=== PATIENT | male | born 1955 | race Caucasian/White ===

== ENCOUNTER 2018-02-10 16:38 | Emergency (ER) | payer OTHER ==
[~2018-02-10] VITALS: Ht 175.3 cm; Wt 61.0 kg
[~2018-02-10 16:38] MED LIST: ASCORBIC ACID500 M3 PO; ASPIR 8181 M1 PO; ASPIRIN81 M2 PO; BENADRYL25 MG PO; COREG25 M1 PO; COUMADIN1 MG PO; ENDOCET 5-3251 EACH PO; FLAGYL500 MG PO; FOLIC ACID1 MG PO; LASIX20 MG PO; LEVAQUIN500 MG PO; LIDOCAINE700 MG TD; LISINOPRIL20 MG PO; METOCLOPRAMIDE10 MG PO; OXYCONTIN10 MG PO; PERCOCET 5/31 TABLET PO; SENNA-TIME S T1 EACH PO; THERAGRAN1 TABLET PO
[2018-02-10 17:45] LABS: HEMATOCRIT 47.1 % (38.0-50.0); HEMOGLOBIN 16.2 G/DL (12.5-16.6); MCH 35.5 PG (29.0-34.0); MCHC 34.4 G/DL (30.0-36.0); MCV 103.3 FL (86-99); PLATELET COUNT 227 K/uL (156-360); RBC DIS.WIDTH-CV 14.5 % (11.8-14.6); RBC DIS.WIDTH-SD 55.4 % (39-53); RED BLOOD COUNT 4.56 M/uL (4.00-5.50); WHITE BLOOD COUNT 4.8 K/uL (4.1-10.2)
[2018-02-10 17:56] LABS: ALBUMIN 4.1 g/dL (3.2-4.8)
[2018-02-10 17:57] LABS: CHLORIDE 104 mEq/L (99-109); POTASSIUM 3.4 mEq/L (3.7-5.4); SODIUM 141 mEq/L (136-147)
[2018-02-10 17:59] LABS: GLUCOSE 176 mg/dL (70-99); TOTAL PROTEIN 7.5 g/dL (6.4-8.3)
[2018-02-10 18:01] LABS: TOTAL BILIRUBIN 3.8 mg/dL (0.0-1.0)
[2018-02-10 18:02] LABS: ALKALINE PHOSPHATASE 117 IU/L (3-129)
[2018-02-10 18:03] LABS: GFR ESTIMATE (CALCULATED) > 59 mL/min/ (58.99-99999)
[2018-02-10 18:04] LABS: AST (GOT) 16 IU/L (2-34); UREA NITROGEN (BUN) 14 mg/dL (9-23)
[2018-02-10 18:05] LABS: ALT (GPT) 7 IU/L (3-49)
[2018-02-10 18:08] LABS: APPEARANCE CLEAR ((CLEAR)); BILIRUBIN NEGATIVE; BLOOD SMALL; COLOR YELLOW ((YELLOW)); GLUCOSE (STRIP) NEGATIVE; KETONES NEGATIVE; LEUKOCYTES NEGATIVE; NITRITE NEGATIVE; PROTEIN (STRIP) NEGATIVE; SPECIFIC GRAVITY 1.016 (1.000-1.030)
[2018-02-10 18:15] LABS: BACTERIA RARE /HPF; EPITHELIAL CELLS RARE /HPF; HYALINE CASTS 0-5 /LPF; MUCUS 1+ /LPF; RED BLOOD CELLS 0-5 /HPF (0-5); WHITE BLOOD CELLS 0-5 /HPF (0-5)
[2018-02-10] MEDS ORDERED: PEPCID20 MG PO (19:51)
[2018-02-10] MEDS ORDERED: CARAFATE1 GM PO (19:51)
[2018-02-10 20:02] VITALS: BP 110/78
== END 2018-02-10 20:03 | disposition home or self-care (01) ==
LOC: EME 16:38
PROVIDERS: Physician Assistant
DX: R13.10 Dysphagia, unspecified (principal); R10.13 Epigastric pain; R68.81 Early satiety; R82.99 Other abnormal findings in urine; I11.0 Hypertensive heart disease with heart failure; I50.9 Heart failure, unspecified; Z79.82 Long term (current) use of aspirin; F17.200 Nicotine dependence, unspecified, uncomplicated
CPT/HCPCS: 76705; 80053; 81003; 85027; 99281; 99284

== ENCOUNTER 2018-03-16 16:32 | Emergency (ER) | payer OTHER ==
[~2018-03-16] VITALS: Ht 175.3 cm; Wt 58.4 kg
[~2018-03-16 16:32] MED LIST changes: +CARAFATE1 GM PO; +PEPCID20 MG PO
[2018-03-16 17:49] LABS: HEMATOCRIT 45.7 % (38.0-50.0); HEMOGLOBIN 15.8 G/DL (12.5-16.6); MCH 35.2 PG (29.0-34.0); MCHC 34.6 G/DL (30.0-36.0); MCV 101.8 FL (86-99); PLATELET COUNT 209 K/uL (156-360); RBC DIS.WIDTH-CV 13.1 % (11.8-14.6); RBC DIS.WIDTH-SD 49.6 % (39-53); RED BLOOD COUNT 4.49 M/uL (4.00-5.50); WHITE BLOOD COUNT 4.8 K/uL (4.1-10.2)
[2018-03-16 17:52] LABS: APPEARANCE CLEAR ((CLEAR)); BILIRUBIN NEGATIVE; BLOOD NEGATIVE; COLOR AMBER ((YELLOW)); GLUCOSE (STRIP) NEGATIVE; KETONES 5; LEUKOCYTES SMALL; NITRITE NEGATIVE; PROTEIN (STRIP) NEGATIVE; SPECIFIC GRAVITY 1.021 (1.000-1.030)
[2018-03-16 17:56] LABS: ALBUMIN 4.1 g/dL (3.2-4.8)
[2018-03-16 17:57] LABS: CHLORIDE 103 mEq/L (99-109); POTASSIUM 3.5 mEq/L (3.7-5.4); SODIUM 139 mEq/L (136-147)
[2018-03-16 17:58] LABS: BACTERIA RARE /HPF; CALCIUM OXALATE CRYSTALS 1+ /HPF; EPITHELIAL CELLS RARE /HPF; HYALINE CASTS 0-5 /LPF; MUCUS 1+ /LPF; RED BLOOD CELLS 0-5 /HPF (0-5)
[2018-03-16 17:59] LABS: GLUCOSE 101 mg/dL (70-99); TOTAL PROTEIN 7.7 g/dL (6.4-8.3)
[2018-03-16 18:01] LABS: TOTAL BILIRUBIN 4.2 mg/dL (0.0-1.0)
[2018-03-16 18:02] LABS: ALKALINE PHOSPHATASE 110 IU/L (3-129)
[2018-03-16 18:03] LABS: GFR ESTIMATE (CALCULATED) > 59 mL/min/ (58.99-99999)
[2018-03-16 18:04] LABS: AST (GOT) 18 IU/L (2-34); UREA NITROGEN (BUN) 27 mg/dL (9-23)
[2018-03-16 18:06] LABS: ALT (GPT) 11 IU/L (3-49); LIPASE 21 U/L (1.0-51.0)
[2018-03-16 19:05] LABS: DIRECT BILIRUBIN 0.6 mg/dL (0.0-0.3)
[2018-03-16] MEDS ORDERED: OMEPRAZOLE40 M1 PO (19:25)
[2018-03-16] MEDS ORDERED: CARAFATE100 MG/ML PO (19:25)
[2018-03-16] MEDS ORDERED: KEFLEX500 MG PO (19:26)
[2018-03-16 19:41] VITALS: BP 123/69
== END 2018-03-16 19:42 | disposition home or self-care (01) ==
LOC: EME 16:32
PROVIDERS: Nurse Practitioner Family
DX: K20.9 Esophagitis, unspecified (principal); K29.70 Gastritis, unspecified, without bleeding; N39.0 Urinary tract infection, site not specified; K57.30 Diverticulosis of large intestine without perforation or abscess without bleeding; I11.0 Hypertensive heart disease with heart failure; I50.9 Heart failure, unspecified; F17.200 Nicotine dependence, unspecified, uncomplicated; Z89.412 Acquired absence of left great toe; Z89.411 Acquired absence of right great toe; Z96.642 Presence of left artificial hip joint; Z79.82 Long term (current) use of aspirin
CPT/HCPCS: 74177; 80053; 81003; 82248; 83690; 85027; 87077; 87086; 87186; 93005; 99281; 99285; J2765; J7030